=== PATIENT | male | born 1985 | race Caucasian/White ===

== ENCOUNTER 2018-11-25 21:03 | Emergency (ER) | payer BC, OTHER ==
[2018-11-25 21:20] VITALS: BP 125/83; PULSE 88; TEMP 98.8; BMI 34.4
[2018-11-25] MEDS ORDERED: AMOX TR/POT CLAV 875MG/125MG TABLETS (FP) PO ONE (21:27)
[2018-11-25] MEDS ORDERED: LIDOCAINE 1%-EPI 1:100,000 30 ML MDV IJ ONE (21:43)
[2018-11-25] MEDS ORDERED: AMOX TR/POT CLAV 875MG/125MG TABLETS (FP) ONE (21:49)
--- NOTE | 2018-11-25 22:11 | PDOC ---
History of Present Illness - General Chief Complaint: Bite Stated Complaint: DOG BITE Time Seen by Provider: 11/25/18 21:21 History Source: Patient Exam Limitations: No Limitations Past History - Past Medical History Allergies/Adverse Reactions: Allergies Allergy/AdvReac Type Severity Reaction Status Date / Time No Known Allergies Allergy Verified 01/11/15 20:11 Home Medications: Ambulatory Orders Amox-Tr/K Cl [Augmentin - 875Mg Tablet] 1 tab PO BID #20 tablet 01/11/15 Amoxicillin/Potassium Clav [Augmentin 875-125 Tablet] 1 each PO BID #13 tablet 11/25/18 - Psycho Social/Smoking Cessation Hx Smoking History: Never smoked Hx Alcohol Use: No Drug/Substance Use Hx: Yes Substance Use Type: Alcohol *Physical Exam - Vital Signs Last Vital Signs Temp Pulse Resp BP Pulse Ox 98.8 F 88 19 125/83 100 11/25/18 21:16 11/25/18 21:16 11/25/18 21:16 11/25/18 21:16 11/25/18 21:16 - Physical Exam General Appearance: No: Apparent Distress Extremity: positive: Other (bite lee to R hand (below R thumb) - 3 bite lee noted, 2 superficial bites, 1 deeper bite, multiple excoriations along R arm, FROM of RUE, no deformity, no FB noted in wound) Integumentary: negative: Erythema, Ecchymosis, Bruising Neurologic: positive: Alert, Normal Mood/Affect ED Treatment Course - Medications Given in the ED: ED Medications Discontinued Medications Generic Name Dose Route Start Last Admin Trade Name Freq PRN Reason Stop Dose Admin Amoxicillin/Clavulanate Potassium 1 tab 11/25/18 21:27 11/25/18 21:56 Augmentin - 875mg Tablet PO 11/25/18 21:28 1 tab ONCE ONE Administration Medical Decision Making - Medical Decision Making 33 y/o M hx of hypothyroidism presents with dog bite to R hand from today ( around 8:30 PM) along with multiple scratches to RUE. Patient states it was his own dog and his dog is UTD on rabies. Dog got provoked when patient grabbed dog by collar. Patient is UTD on tetanus already. Denies fever, other complaints Site around wound cleaned with betadine, local anesthesia provided with 1% lidocaine with epi, wound thoroughly irrigated with 1L of normal saline, wound covered with Bacitracin, sterile gauze and kerlix dressing Patient with FROM of RUE so no suspicion for bone/tendon/ligament injury Given Augmentin Will also refer to hand 11/25/18 22:07 Discharge - Discharge Information Problems reviewed: Yes Clinical Impression/Diagnosis: Dog bite Qualifiers: Encounter type: initial encounter Qualified Code(s): W54.0XXA - Bitten by dog, initial encounter Condition: Stable Disposition: HOME - Admission No - Additional Discharge Information Prescriptions: Amoxicillin/Potassium Clav [Augmentin 875-125 Tablet] 1 each PO BID #13 tablet Prescription Drug Monitoring Program (I-STOP) results: I-STOP not reviewed - Follow up/Referral Referrals: Germain Noland MD [Staff Physician] - 2 Days - Patient Discharge Instructions Patient Printed Discharge Instructions: DI for Dog Bite Additional Instructions: Thank you for choosing [facility]. It was a pleasure taking care of you. You may take Motrin 600 mg every 6 hours by mouth as needed for mild to moderate pain. Take Motrin with food. Please take the antibiotics as prescribed You may also apply Bacitracin or Neosporin over sites of injury Please return in 2 days for wound check You were referred to hand doctor Return to the Emergency Department if your symptoms worsen or persist, you have fever, pustular discharge or other concerning symptoms. - Post Discharge Activity
== END 2018-11-25 22:29 | disposition home or self-care (01) ==
LOC: JERFT 21:03
DX: S61.451A Open bite of right hand, initial encounter (principal); S50.811A Abrasion of right forearm, initial encounter; W54.0XXA Bitten by dog, initial encounter; Y93.89 Activity, other specified; Y92.038 Other place in apartment as the place of occurrence of the external cause; Y99.8 Other external cause status
CPT/HCPCS: 99281-25